=== PATIENT | female | born 1955 | race Caucasian/White ===

== ENCOUNTER 2019-08-30 07:59 | Emergency (ER) | payer SELFPAY ==
[2019-08-30 08:01] VITALS: BP 164/62; PULSE 62; RESP 16; TEMP 36.1; O2SAT 98; BMI 37.0
--- NOTE | 2019-08-30 08:06 | EKG12_ITS ---
Test Reason : CP Blood Pressure : / mmHG Vent. Rate : 061 BPM Atrial Rate : 061 BPM P-R Int : 148 ms QRS Dur : 090 ms QT Int : 448 ms P-R-T Axes : 038 -11 029 degrees QTc Int : 450 ms Normal sinus rhythm with sinus arrhythmia Normal ECG Confirmed by DINA MCKEON, SHIRA ([id number]), advertising editor CYNTHIA MARTINES ([id number]) on 09/01/2019 12:19:51 PM Referred By: SCHUYLER Confirmed By:SHIRA ARROYO MD
--- NOTE | 2019-08-30 08:06 | RAD_ITS ---
STUDY: X-RAY CHEST REASON FOR EXAM: Female, 63 years old. Chest pressure started yesterday. TECHNIQUE: AP upright portable view. COMPARISON: None. FINDINGS: The lungs are clear and expanded. There is no demonstrated pleural abnormality. Normal size heart. Normal mediastinum and kranthi. Normal visualized pulmonary arteries. Normal visualized aortic arch and descending thoracic aorta. Mild dextroscoliosis of the thoracic spine. Right lateral marginal spurring along the thoracic spine. 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 Normal left clavicle, left shoulder, right glenohumeral articulation and rib cage. There is no demonstrated abnormality of the visualized soft tissue structures of the upper abdomen. RAD/Chest 1 View (Portable) IMPRESSION: No acute cardiopulmonary pathology. Electronically Signed: Jadon Chang MD at 9:22 EST , Service support ,
--- NOTE | 2019-08-30 08:06 | ED.VIS.GEN ---
History of Present Illness Chief Complaint: Chest Pain Informant: Patient Onset: Yesterday Context: Gradual Onset Timing: Waxes and wanes Current Severity: Mild Maximum Severity: Mild Narrative: Patient describes a chest heaviness that started yesterday. It does not get worse with exertion. She states he gets better when she sleeps. She has had some intermittent shortness of breath. She denies significant cardiac disease. She does have PAT. She does feel she is been under increased stress recently and believes that is the cause of her worsening chest pressure. She felt slightly dizzy at work this morning and coworkers encouraged her to come to the ED. Past Medical History - Allergies and Home Meds Allergies/Adverse Reactions: Allergies No Known Allergies Allergy (Verified 08/30/19 07:59) Primary Care Physician: Chang Lima III, MD [STAFF PHYSICIAN] - As soon as possible Past Medical History: - - PAT Lives: Spouse/ Significant Other Review of Systems General: Denies: Chills, Fever Eyes: Denies: Visual changes - bilaterally ENT: Denies: Bilateral ear pain Cardiovascular: Reports: Chest pain Respiratory: Reports: Dyspnea - Occasional. Denies: Cough Gastrointestinal: Denies: Abdominal pain, Nausea, Vomiting, Diarrhea Genitourinary: Denies: Dysuria Musculoskeletal: Denies: Swelling, Extremity Pain Skin: Denies: Rash Neurological: Denies: Headache Hematologic: Denies: Easy bruising Allergy: Denies: Uticaria Physical Exam Vital Signs/Narrative: Vital Signs Temp Pulse Resp BP Pulse Ox 08/30/19 08:01 97.0 F L 62 16 164/62 H 98 Inital Vital Signs reviewed: Yes General: Well nourished, Well developed Head: Normocephalic ENT: Moist mucous membranes Neck: Supple Cardiovascular: Regular rate, Regular rhythm Respiratory: No distress, CTA bilaterally Abdomen: Soft, Nontender, Hypoactive bowel sounds Extremities: Nontender, No edema Skin: Normal color, No rash Neurological: Alert, Oriented x3 Psychological: Normal affect Diagnostic/Tx/Re-eval Chest X-Ray - ED: 1 View, Read by ED Physician, Chronic Changes, No Infiltrates - EKG Initial EKG Interpretation: Sinus Rhythm - Sinus at 61 with no acute ischemia. - Medical Decision Making Patient presents with a full day of chest pressure. It is not worsened with exertion. EKG, enzymes, and chest x-ray are unremarkable. Patient is reassured with this. She states she does not believe this is her heart but thinks she may be getting bronchitis. She will be referred to local PCP to establish primary care. She is encouraged to return if symptoms worsen or any other concerns arise. ED Disposition - Plan for ED Patient: Disposition: Home or Assisted Living Diagnosis: Chest pain Instructions: CHEST PAIN, Uncertain Cause Referrals: Chang Lima III, MD [STAFF PHYSICIAN] - As soon as possible
[2019-08-30 08:08] VITALS: O2SAT 100
[2019-08-30] MEDS: Aspirin 81 MG TAB.CHEW 324 MG PO (08:09)
[2019-08-30 08:17] LABS: Absolute Lymphocyte Count 1.27 X10^3/uL (0.83-4.51); Basophil# 0.02 X10^3/uL; Basophil% 0.4 % (0-1); Eosinophil# 0.07 X10^3/uL; Eosinophils% 1.5 % (0-5); Hematocrit 40.1 % (37-47); Hemoglobin 12.7 g/dL (12.0-15.0); Lymphocyte # 1.27 X10^3/ul (4.0); Lymphocyte % 26.6 % (19-41); Mean Corp Hgb Conc 31.7 g/dL (32-36); Mean Corpuscular Hgb 27.3 pg (27.0-32.0); Mean Corpuscular Volume 86.2 fL (81-99); Mean Platelet Vol. 9.9 fl (6.2-12.0); Monocyte# 0.38 X10^3/uL; Monocyte% 7.9 % (0-10); NRBC Flagged by Analyzer 0 % (0-5); Neutrophil # 3.03 X10^3/uL (2.7-7.7); Neutrophil % 63.4 % (47-70); Platelet Count 279 K/mm3 (150-450); RBC Distribution Width SD 40.7 fl (35.1-43.9); Red Blood Count 4.65 M/mm3 (4.2-5.4); White Blood Count 4.8 K/mm3 (4.4-11.0)
[2019-08-30 08:41] LABS: Anion Gap 4 (5-15); BUN 15 mg/dL (7-18); BUN/Creat Ratio 21.1 RATIO (10-20); Calcium,Total 9.1 mg/dL (8.5-10.1); Chloride 111 mmol/L (98-107); Creatinine, Serum 0.71 mg/dL (0.55-1.02); EST Glomerular Filtration Rate 89 mL/min (>60); Est Glom Filt Rate - Afr Amer 107 mL/min (>60); Estimated Creatinine Clearance 59.77 ml/min; Glucose 89 mg/dL (74-106); Potassium 3.8 mmol/L (3.5-5.1); Sodium Level 143 mmol/L (136-145)
[2019-08-30 08:49] VITALS: BP 130/81; PULSE 64; RESP 18; O2SAT 99
== END 2019-08-30 08:50 | disposition home or self-care (01) ==
PROVIDERS: Emergency Provider Emergency Medicine
DX: R07.9 Chest pain, unspecified (principal)
CPT/HCPCS: 71045; 80048; 84484; 85025; 93005; 99285; A4216